=== PATIENT | female | born 1980 | race African-American/Black ===

== ENCOUNTER 2019-02-09 16:09 | Emergency (ER) | payer SELFPAY ==
[~2019-02-09] VITALS: Ht 175.3 cm; Wt 80.0 kg
[~2019-02-09 16:09] MED LIST: CALCIUM CHLORIDE 1GM/10ML SYR IV ONE; EPINEPHRINE 0.1MG/ML (1:10,000) 10ML SYR ONE; MAGNESIUM SULFATE 4G IN WATER 100ML PREMIX IV ONE; SODIUM BICARBONATE 8.4% 1 MEQ/ML 50ML SYR IV ONE
[2019-02-09 16:18] VITALS: BP 0/0
[2019-02-09] MEDS ORDERED: EPINEPHRINE 0.1MG/ML (1:10,000) 10ML SYR ONE ×2 (16:25→16:33)
[2019-02-09] MEDS ORDERED: ALTEPLASE 100MG/VIAL IV ONE (17:00)
== END 2019-02-09 19:32 | disposition expired ==
LOC: ER 16:09
DX: I46.9 Cardiac arrest, cause unspecified (principal); I10 Essential (primary) hypertension; E11.9 Type 2 diabetes mellitus without complications; I51.7 Cardiomegaly
CPT/HCPCS: 82962; 92950; 99291; J2997; J3475; J3490